=== PATIENT | female | born 1985 | race Caucasian/White ===

== ENCOUNTER 2017-10-19 07:42 | Inpatient (IN) | payer BC, OTHER ==
[~2017-10-19] VITALS: Ht 162.6 cm; Wt 54.4 kg
--- NOTE | 2017-10-19 14:06 | NUR ---
PRE ADMISSION 32 year old female presented at intake, patient is alert and oriented x4, bp: 124/72 hr: 91 t: 98.2 r: 16 o2 sat: 99% room air. patient reports no known drug allergies. Patient reports substance use history of: heroin 1 gram IV daily for one year, last used 10/19/2017 0400 0.2gram. cocaine, weekly use of 0.1 gram Iv, last used 10/17/2017, and methamphetamine once a month use, smoked last used 1 month ago. patient reports Dx: depression and anxiety diagnosed November 2016 and heart mummer Dx: age 25 and left atrial enlargement Dx: August 2017. patient denies any history of seizures. patient reports father and brother have history of substance abuse. patient reports this is her first time in treatment. patient was educated regarding unit policies and procedures with good verbal understanding. patient was seen by Dr. Harley at intake office.
[2017-10-19] MEDS ORDERED: ONDANSETRON ODT 4 MG TAB.RAPDIS SL PRN (14:30)
[2017-10-19] MEDS ORDERED: MAG HYDROX/AL HYDROX/SIMETH 30 ML LIQUID UDC PO PRN (14:30)
[2017-10-19] MEDS ORDERED: DICYCLOMINE HCL 20 MG TABLET PO PRN (14:30)
[2017-10-19] MEDS ORDERED: LORAZEPAM 1 MG TABLET PO PRN ×2 (14:30)
[2017-10-19] MEDS ORDERED: CLONIDINE HCL 0.1 MG TABLET PO PRN (14:30)
[2017-10-19] MEDS ORDERED: ACETAMINOPHEN 325 MG TABLET PO PRN (14:30)
[2017-10-19] MEDS ORDERED: IBUPROFEN 600 MG TABLET PO PRN (14:30)
[2017-10-19] MEDS ORDERED: METHOCARBAMOL 750 MG TABLET PO PRN (14:30)
[2017-10-19] MEDS ORDERED: diphenhydrAMINE 50 MG CAPSULE PO PRN (14:30)
[2017-10-19] MEDS ORDERED: LOPERAMIDE HCL 2 MG CAPSULE PO PRN ×2 (14:30)
[2017-10-19] MEDS ORDERED: LORAZEPAM 2 MG/1 ML VIAL IM PRN (14:30)
[2017-10-19] MEDS ORDERED: ONDANSETRON 4 MG/2 ML VIAL IM PRN (14:30)
[2017-10-19] MEDS ORDERED: BUPRENORPHINE HCL 2 MG TAB.SUBL SL PRN (14:30)
--- NOTE | 2017-10-19 14:41 | NUR ---
ADMISSION Patient arrived on unit at 1441, body search completed by female SEAT SCOOPER MACHINE, no contraband was found, body assessment completed patient skin is intact but was noted with track garzon to bilateral arms, on right and left forearm area was noted with possible abscess, area was noted with bump and hard to touch. patient is 5 feet 4 inches and weighs 120 lbs. patient was oriented to unit and to room, education regarding call light use was provided with good verbal understanding, bed in low position with side rails x2 up, call light in reach. fall precautions observed. patient reports NKA. Patient reports substance use of: 1. heroin, began using heroin at the age of 30 per patient currently using heroin 1 gram IV daily for one year last used 10/19/2017 0.2gram at 0400. 2. cocaine, began using cocaine at the age of 16, currently using cocaine 0.1gram IV once a week for one year. 3. methamphetamine, began using methamphetamine at the age of 16, currently using methamphetamine unknown amount smoked once a month for two years. Patient reports heroin use began after taking more than prescribed Roxicodone, patient reports she was prescribed Roxicodone for pain mgmt in 2005 due right ankle surgery, secondary to injury of right ankle. reports she does not have a primary care physician but was diagnosed with anxiety and depression in November 2016, reports was diagnosed with heart murmur at the age of 25 and diagnosed with left atrial enlargement in August 2017 after accidently overdose on heroin. patient denies taking any home medications. patient denies any history of seizures. reports this is the first time in treatment. reports father and brothers have a history of substance abuse. patient reports surgical history of: ankle surgery in 2005 and two c sections. currently patient awake, alert and oriented, presents with: elevated heart rate, c/o chills, feeling hot and cold, enlarged pupils, bone and joint aches and anxiety, patient with admitting cow score of: 5. patients abdomen is soft and non distended, bowel sounds heard in all quadrants. patients reports are even and unlabored, lungs clear upon auscultation. will continue to monitor closely. safety measures in place. call light with in reach, will continue to monitor.
[2017-10-19 14:58] LABS: *URINE HCG, QUAL NEGATIVE (NEGATIVE)
[2017-10-19 15:07] LABS: *AMPHETAMINE, URINE NEGATIVE (NEGATIVE); *BARBITURATE, URINE NEGATIVE (NEGATIVE); *CANNABINOID, URINE NEGATIVE (NEGATIVE); *COCCAINE, URINE POSITIVE (NEGATIVE); *OPIATE, URINE POSITIVE (NEGATIVE); *PHENCYCLIDINE SCREEN,URINE NEGATIVE (NEGATIVE)
[2017-10-19 15:18] VITALS: BP 124/72
[2017-10-19 16:39] VITALS: BP 131/82
[2017-10-19 16:42] LABS: BASOPHILS # (AUTO) 0.1 K/uL (0.0-8.0); BASOPHILS % (AUTO) 1.3 % (0.0-2.0); EOSINOPHILS # (AUTO) 0.4 K/uL (0.0-0.7); EOSINOPHILS % (AUTO) 6.4 % (0.0-7.0); HEMATOCRIT 39.5 % (31.2-41.9); HEMOGLOBIN 13.1 g/dL (10.9-14.3); LYMPHOCYTES % (AUTO) 30.5 % (20.5-51.5); MEAN CORPUSCULAR HEMOGLOBIN 30.1 uug (24.7-32.8); MEAN CORPUSCULAR HGB CONC 33 g/dL (32.3-35.6); MEAN CORPUSCULAR VOLUME 90.4 fL (75.5-95.3); MONOCYTES # (AUTO) 0.5 K/uL (2.0-10.0); MONOCYTES % (AUTO) 8.4 % (0.0-11.0); NEUTROPHILS # (AUTO) 3.4 K/uL (1.8-8.9); NEUTROPHILS % (AUTO) 53.4 % (38.5-71.5); PLATELET COUNT (AUTO) 287 K/uL (179-408); RED BLOOD CELL COUNT(AUTO) 4.36 MIL/uL (3.63-4.92); WHITE BLOOD COUNT (AUTO) 6.4 K/uL (3.8-11.8)
[2017-10-19] MEDS: BUPRENORPHINE HCL 2 MG TAB.SUBL SL SCH ×2 (16:52→20:55)
[2017-10-19 17:01] LABS: ALANINE AMINOTRANSFERASE 386 U/L (14-59); ALKALINE PHOSPHATASE 125 U/L (50-136); ASPARTATE AMINOTRANSFERASE 152 U/L (15-37); BILIRUBIN,TOTAL 0.7 mg/dL (0.2-1.0); CARBON DIOXIDE 30 mmol/L (21-32); CHLORIDE 102 mmol/L (98-107); GLUCOSE 93 mg/dL (74-106); MAGNESIUM 1.9 mg/dL (1.8-2.4); POTASSIUM 4.4 mmol/L (3.5-5.1); TOTAL PROTEIN, SERUM 7.7 g/dL (6.4-8.2); UREA NITROGEN, BLOOD 11 mg/dL (7-18)
[2017-10-19 17:04] LABS: ETHANOL < 3 MG/DL (0-0)
--- NOTE | 2017-10-19 19:09 | NUR ---
END OF SHIFT Patient alert and oriented x4, patient admitted today during shift, with admitting Dx: opiate withdrawal, patient is scheduled to begin a 5 day Subutex taper tomorrow morning, but has doses scheduled for today for s/sx of withdrawal. Presented with elevated heart rate, flushed faces, clammy skin, restlessness, enlarged pupils, bone and joint aches, moist eyes, stomach cramps, yawning, and anxiety. Last cow score of: 10. Encouraged increase in PO fluid intake as tolerated, to facilitate detox. patient was encouraged adequate PO fluid intake as tolerated, patient encouraged to develop coping skills and utilization of non pharmacological interventions. Patient was encouraged to participate in therapy session .Encouraged diversional activities to alleviate anxiety. Denies any SI/HI. Safety measures in place. Call light kept with in reach, patient endorsed to oxygen system tester nurse, all pertinent information was discussed.
--- NOTE | 2017-10-19 19:10 | NUR ---
Start of Shift Patient Received. Patient is noted in activities room participating in a group meeting. Patient is a 32 year old female admitted to unit during morning shift. Patient was started on a modified Ativan and Subutex taper. Last noted COWS 11 due to increased anxiety, agitation, increased body aches, and stomach cramps. No PRN medications administered. All needs attended to promptly. Will continue plan of care as ordered.
[2017-10-19 20:52] VITALS: BP 121/70
[2017-10-19] MEDS: GABAPENTIN 300 MG CAPSULE PO SCH (20:55)
[2017-10-19] MEDS ORDERED: LORAZEPAM 1 MG TABLET PO SCH (21:00)
[2017-10-20 00:38] VITALS: BP 116/77
[2017-10-20 04:15] VITALS: BP 104/68
--- NOTE | 2017-10-20 07:26 | NUR ---
End of Shift Patient is in bed sleeping. Breathing even and non labored. patient continues on a modified Subutex taper. Patient was noted to be easily irritable, noted verbalizing increased anxiety, increased body aches and diaphoresis. Patient also verbalized "when I detox I have issues sleeping. I dont want to take Benadryl because it doesn't work." explained to patient that MD would be made aware. Last noted COWS 12. Patient noted to sleep a total of 5 hours. All needs attended to promptly. Will endorse to continue plan of care as ordered.
--- NOTE | 2017-10-20 07:41 | NUR ---
BEGINNING OF SHIFT Patient endorsement report received from shank rander nurse, all pertinent information discussed. Patient is a 32 year old female with admitting Dx: Opiate withdrawal. Patient continues under very close observation, patient scheduled to begin a 5 day Subutex taper as ordered, is currently scheduled to begin day 1 of taper this morning. Per shank rander patient with last cow score of: 12. Received no PRNs. per shank rander. slept for 5 hours. Fall and seizure precautions observed at all times. Patient received awake, alert and oriented x4, educated regarding plan of care for the day, and medication regimen with good verbal understanding. fall and seizure precautions observed and in place. will continue to monitor closely. safety measures in place.
[2017-10-20] MEDS ORDERED: HYDROXYZINE PAMOATE 25 MG CAPSULE PO PRN (09:00)
[2017-10-20] MEDS ORDERED: TUBERCULIN,PURIF.PROT.DERIV. 5 TU/0.1 ML TEST ID ONE (09:00)
[2017-10-20 09:24] VITALS: BP 97/67
[2017-10-20] MEDS: GABAPENTIN 300 MG CAPSULE PO SCH ×2 (09:27→20:59)
[2017-10-20] MEDS: BUPRENORPHINE HCL 2 MG TAB.SUBL SL SCH ×3 (09:27→21:00)
--- NOTE | 2017-10-20 11:05 | NUR ---
MD COMMUNICATION patient verbalized to charge nurse feeling "my blood sugar is low" patient reported feeling "weak, and shaky" patient reports that sometimes she does have "hypoglycemia" per MD patient with new orders for one time blood glucose check.
--- NOTE | 2017-10-20 11:10 | NUR ---
BLOOD SUGAR Patient with blood glucose of 99, per patient was drinking an apple juice and feels better. MD notified. will continue to monitor closely. safety measures in place. call light with in reach. will continue to monitor.
[2017-10-20] MEDS ORDERED: BLOOD SUGAR DIAGNOSTIC 1 EACH STRIP VI ONE (11:30)
--- NOTE | 2017-10-20 13:24 | NUR ---
Therapist prompted client to attend all groups while in treatment to increase feelings of being connected to others and not be isolated in bedroom. Therapist explained the benefits of attending groups such as learning new coping tools, learning about feelings/emotions and being able to learn to decrease negative feelings and thoughts.
[2017-10-20 14:15] VITALS: BP 114/62
[2017-10-20 17:00] VITALS: BP 131/82
--- NOTE | 2017-10-20 19:00 | NUR ---
END OF SHIFT Patient alert and oriented x4, Dx: opiate withdrawal, patient is continues on day 1 of 5 day Subutex taper as ordered. patient reported poor sleep during car shifter, encouraged patient to avoid day naps and to avoid caffeine products prior to sleeping. Dr. Hannah was also notified with new orders. During shift patient presented with: flushed face, clammy skin, restlessness, enlarged pupils, bone and joint aches, moist eyes, yawning and anxiety. Initial cow score of: 10, last cow score of: 9. During shift patient with episodes of reporting she had "hypoglycemia" blood sugar was checked as ordered by Dr. reynoso with result of 99. monitored closely for any s/sx of hypoglycemia during shift. Encouraged increase in PO fluid intake as tolerated, to facilitate detox. patient was encouraged adequate PO fluid intake as tolerated, patient encouraged to develop coping skills and utilization of non pharmacological interventions. Patient was encouraged to participate in therapy session .Encouraged diversional activities to alleviate anxiety. Denies any SI/HI. Safety measures in place. Call light kept with in reach, patient endorsed to car shifter nurse, all pertinent information was discussed.
--- NOTE | 2017-10-20 19:15 | NUR ---
Start of Shift Note: Received patient from day shift nurse. Patient is a 32 y.o female admitted on 10/19/17 for medically supervised withdrawal from Opiate and Benzo's. Upon assessment, pt oberved sitting in bed with a flat affect, anxious/irritable mood, noted with moist/clammy skin & reports constipation. Encourage pt to increase fluid intake. Pt continues on a Subutex taper and started pt today on a modified Ativan taper and tolerating well. Last COWS 9 CIWA 7. No PRN medications received during day shift per report. Educated patient current plan of care for the night and medication regimen. Safety measures in place. Will continue to monitor patient. Addendum: 10/21/17 at 2230 by KELLY MARIE RN ERROR: WRONG TIME DOCUMENTED
--- NOTE | 2017-10-20 19:30 | NUR ---
Start of Shift Pt is a 32 y/o female, admitted 10/19/17 for Heroin, Xanax Withdrawal and detox, and using Cocaine, Methamphetamine on an intermittent basis. Pt called to room and noted to be withdrawn, anxious. and irritable, sitting on bed (hair pulled up). Flat and withdrawn, inquiring about Wellbutrin start, saying she normally takes 300mg ,scheduled dose is 150 mg qday starting the following morning. Nurse to inquire as to dose. 2100 meds to include Neurontin 300mg PO, Seroquel 50mg PO, and Subutex 4mg SL
[2017-10-20 20:00] VITALS: BP 138/79
[2017-10-20] MEDS: QUETIAPINE FUMARATE 25 MG TABLET PO SCH (20:59)
[2017-10-21 00:38] VITALS: BP 105/55
[2017-10-21 04:15] VITALS: BP 107/63
--- NOTE | 2017-10-21 07:27 | NUR ---
End of Shift Pt is a 32 y/o female that continues on a modified Subutex Taper. During shift Pt was noted to be withdrawn, anxious. and irritable, flat. Pt received first dose Seroquel 50mg PO for sleep and medication noted to be effective-pt slept 8hours. No PRN medications administered, last CIWA noted to be 10. All needs attended to promptly. Will endorse to continue plan of care as ordered.
--- NOTE | 2017-10-21 07:41 | NUR ---
BEGINNING OF SHIFT Patient endorsement report received from textile worker nurse, all pertinent information discussed. Patient is a 32 year old female with admitting Dx: Opiate withdrawal. Patient continues under very close observation, patient scheduled to begin a 5 day Subutex taper as ordered, is currently scheduled to begin day 2 of taper this morning. Per textile worker patient with last cow score of: 10. Received no PRNs. per textile worker. slept for 8 hours. Fall and seizure precautions observed at all times. Patient received awake, alert and oriented x4, educated regarding plan of care for the day, and medication regimen with good verbal understanding. fall and seizure precautions observed and in place. will continue to monitor closely. safety measures in place.
[2017-10-21 08:06] LABS: HEPATITIS B SURFACE AG Negative (Negative)
[2017-10-21 08:49] VITALS: BP 95/62
[2017-10-21] MEDS: GABAPENTIN 300 MG CAPSULE PO SCH ×2 (08:50→14:29)
[2017-10-21] MEDS ORDERED: BUPRENORPHINE HCL 2 MG TAB.SUBL SL SCH (09:00)
[2017-10-21] MEDS: buPROPion XL 150 MG TAB.SR.24H PO SCH (09:29)
--- NOTE | 2017-10-21 11:00 | NUR ---
MD COMMUNICATION notified MD of hep c results, per MD he will speak with patient.
[2017-10-21 13:20] VITALS: BP 106/60
[2017-10-21] MEDS ORDERED: KETOROLAC TROMETHAMINE 30 MG INJ IM PRN (13:45)
[2017-10-21] MEDS ORDERED: METHYL SALICYLATE/MENTHOL CREAM 28 GM TUBE TOP PRN (13:45)
[2017-10-21] MEDS: BUPRENORPHINE HCL 2 MG TAB.SUBL SL SCH ×2 (14:29→20:57)
--- NOTE | 2017-10-21 14:38 | NUR ---
PT COMMUNICATION/USAGE HX REASSESSMENT Reassess patient regarding usage. Per patient, verbalized to nurse that she was also taking Xanax at home, per patient was first prescribed Xanax at the age of 25, for the past 4 years she has been taking PO 30mg on a weekly non daily basis, patient reports she last took Xanax 4mg PO on october 13 2017. Addendum: 10/21/17 at 1441 by SURINDER HOLLAND LVN MD Is aware, patient to start a modified ativan taper. will continue to monitor closely.
[2017-10-21] MEDS ORDERED: LORAZEPAM 1 MG TABLET PO SCH ×2 (15:00→21:00)
[2017-10-21 17:16] VITALS: BP 128/77
--- NOTE | 2017-10-21 18:59 | NUR ---
END OF SHIFT Patient alert and oriented x4, Dx: opiate withdrawal, patient is continues on day 2 of 5 day Subutex taper as ordered. Patient presented anxious, worried, with irritable facial expression. Mood is flat and labile. Patient also reported substance use of Xanax, patient was started on a modified Ativan taper as per Dr. Harley. During shift patient presented with: flushed face, clammy skin, restlessness, bone and joint aches, moist eyes, yawning and anxiety, and agitation. Initial cow score of: 10. , last cow score of: 9, last ciwa score of: 7. Encouraged increase in PO fluid intake as tolerated, to facilitate detox. patient was encouraged adequate PO fluid intake as tolerated, patient encouraged to develop coping skills and utilization of non pharmacological interventions. Patient was encouraged to participate in therapy session .Encouraged diversional activities to alleviate anxiety. Denies any SI/HI. Safety measures in place. Call light kept with in reach, patient endorsed to caustic cresylate shift superintendent nurse, all pertinent information was discussed.
--- NOTE | 2017-10-21 19:15 | NUR ---
Start of Shift Note: Received patient from day shift nurse. Patient is a 32 y.o female admitted on 10/19/17 for medically supervised withdrawal from Opiate and Benzo's. Upon assessment, pt oberved sitting in bed with a flat affect, anxious/irritable mood, noted with moist/clammy skin & reports constipation. Encourage pt to increase fluid intake. Pt continues on a Subutex taper and started pt today on a modified Ativan taper and tolerating well. Last COWS 9 CIWA 7. No PRN medications received during day shift per report. Educated patient current plan of care for the night and medication regimen. Safety measures in place. Will continue to monitor patient.
[2017-10-21 20:00] VITALS: BP 121/74
[2017-10-21] MEDS: MIRALAX 17 GM POWD.PACK PO PRN (20:57)
[2017-10-21] MEDS: QUETIAPINE FUMARATE 25 MG TABLET PO SCH (20:57)
--- NOTE | 2017-10-21 20:57 | NUR ---
PRN Miralax PRN Miralax administered as ordered for constipation. Will continue to monitor patient for any bowel movement.
[2017-10-21] MEDS ORDERED: GABAPENTIN 300 MG CAPSULE PO SCH (21:00)
[2017-10-22] VITALS: BP 119/64
--- NOTE | 2017-10-22 06:55 | NUR ---
End of Shift Note: Patient is a 32 y.o female admitted for medically supervised withdrawal Opiate and Benzo withdrawal. Patient remains alert & oriented x4. Patient continues on her Ativan & Subutex taper and tolerating well. Last COWS 8 CIWA 8. Pt received PRN Miralax for constipation, still no BM noted. Pt remained stable and vitals note WNL. Will continue to monitor s/s of withdrawal. Pt still asleep at this time. Pt slept for a total of 8 hours. Fluid intake: 1535 ml. Voided 4x with no bowel movement during my shift. All needs attended. Safety measures in place. Will endorse to day shift nurse.
--- NOTE | 2017-10-22 07:28 | NUR ---
Start of shift note; Received report from night nurse. Patient is a 32 year old female admitted on 10/19/17 for Opiate/ Benzodiazepine/ Methamphetamine withdrawals. Patient was started on Subutex and Ativan taper. Patient is AOx4, complaining of muscle aches, anxiety, diaphoresis, avoidant to eye contact, withdrawn, appears depressed. Encouraged patient to participate in group therapies and activities and to verbalize feelings. Educated patient regarding the importance of compliance to treatment and medication regime, patient verbalized understanding. All safety measures secured. Will continue to monitor patient.
[2017-10-22 08:00] VITALS: BP 111/62
[2017-10-22] MEDS: GABAPENTIN 300 MG CAPSULE PO SCH ×3 (08:15→21:07)
[2017-10-22] MEDS: BUPRENORPHINE HCL 2 MG TAB.SUBL SL SCH ×3 (08:15→21:09)
[2017-10-22] MEDS: buPROPion XL 150 MG TAB.SR.24H PO SCH (08:15)
[2017-10-22] MEDS ORDERED: LORAZEPAM 1 MG TABLET PO SCH ×3 (09:00→21:00)
[2017-10-22] MEDS ORDERED: PSYLLIUM SEED PACKET PO PRN (11:30)
[2017-10-22] MEDS ORDERED: HYDROXYZINE PAMOATE 25 MG CAPSULE PO PRN (11:30)
[2017-10-22 12:00] VITALS: BP 132/81
[2017-10-22] MEDS: DOCUSATE SODIUM 250 MG CAPSULE PO SCH (13:22)
[2017-10-22] MEDS: LIDOCAINE 5% PATCH TD SCH (13:22)
[2017-10-22] MEDS: DICYCLOMINE HCL 20 MG TABLET PO SCH ×2 (14:19→21:08)
--- NOTE | 2017-10-22 14:35 | NUR ---
MD order; Patient is complaining of constipation, offered patient PRN laxatives but patient refused to take laxatives other than Citrate of magnesium. MD was notified, MD ordered Citrate of magnesium one time order for constipation. MD does not have access to [facility] at this time, order was clarified and entered on [facility].
[2017-10-22] MEDS ORDERED: MAGNESIUM CITRATE 296 ML BOTTLE PO ONE (14:45)
[2017-10-22 16:00] VITALS: BP 136/78
--- NOTE | 2017-10-22 19:04 | NUR ---
End of shift; Patient is AOX4 appears to be agitated complaining of muscle aches, stomach cramps and restless legs. Patient remained compliant with treatment plan and medication regime. Patient participated in group activities and therapies. Medications were effective in reducing withdrawal symptoms. All safety measures secured. Endorsed to night nurse.
[2017-10-22 20:00] VITALS: BP 129/78
--- NOTE | 2017-10-22 20:00 | NUR ---
START OF SHIFT NOTE RECEIVED REPORT FROM DAY SHIFT NURSE. PATIENT IS 32 YEAR OLD FEMALE ADMITTED FOR OPIATE WITHDRAWAL. CONTINUE PATIENT ON SUBUTEX AND ATIVAN TAPER, TOLERATED WELL AND NO ADVERSE REACTION. PATIENT RECEIVED ONE TIME MAGNESIUM CITRATE. LAST COWS 9 AND CIWA 8. RECEIVED PATIENT ALERT ORIENTED X 4. RESPIRATION EVEN AND UNLABORED. PATIENT WITH FLAT AFFECT, SAD , ANXIOUS, IRRITABLE,PRESSURED SPEECH, ABDOMINAL CRAMPING AND C/O BACK PAIN. SAFETY MEASURES IN PLACE. CALL LIGHT IN REACH. WILL CONTINUE TO MONITOR
[2017-10-22] MEDS: QUETIAPINE FUMARATE 25 MG TABLET PO SCH (21:07)
--- NOTE | 2017-10-22 21:07 | NUR ---
PRN ROBAXIN ADMINISTRATION PATIENT C/O BACK PAIN 12/14. WILL MONITOR FOR EFFECTIVENESS
--- NOTE | 2017-10-22 22:07 | NUR ---
PRN ROBAXIN RE-ASSESSMENT PATIENT STATES ROBAXIN IS HELPFUL AND EFFECTIVE. NO PAIN AT THIS TIME.
[2017-10-23] VITALS: BP 124/78
--- NOTE | 2017-10-23 04:00 | NUR ---
COWS AND CIWA DEFERRED PATIENT IN BED WITH EYES CLOSED. RESPIRATION EVEN AND UNLABORED. SAFETY MEASURES IN PLACE. CALL LIGHT IN REACH. WILL CONTINUE TO MONITOR
--- NOTE | 2017-10-23 07:09 | NUR ---
END OF SHIFT NOTE PATIENT SLEPT 5 HOURS. FLUID INTAKE 1,535 ML. VOIDED X 4. BM X 1. CONTINUE PATIENT ON SUBUTEX AND ATIVAN TAPER, TOLERATED WELL AND NO ADVERSE REACTION. PATIENT WAS ANXIOUS, IRRITABLE, C/O ABDOMINAL CRAMPING AND BACK PAIN BEGINNING OF SHIFT. PATIENT HAD DIFFICULTY FALLING ASLEEP. PATIENT RECEIVED SCHEDULED SEROQUEL , OFFERED BENADRYL BUT REFUSED. PATIENT WAS GIVEN PRN ROBAXIN AT 2107 FOR BACK PAIN, EFFECTIVE. PATIENT WAS GIVEN PRN MAGNESIUM CITRATE PREVIOUS SHIFT. PATIENT HAD LARGE BM DURING SHIFT. CONTINUE TO ENCOURAGE FLUIDS. PATIENT COMPLIANT WITH MEDICATION AND TREATMENT PLAN. SAFETY MEASURES IN PLACE. CALL LIGHT IN REACH. WILL CONTINUE TO MONITOR . LAST COWS 4 AND CIWA 2 .
[2017-10-23 08:00] VITALS: BP 100/60
--- NOTE | 2017-10-23 08:15 | NUR ---
START OF SHIFT: RECEIVED PT A/O X 4. SHE IS SITTING UP IN BED EATING BREAKFAST. SHE REPORTS ANXIETY,ABDOMINAL CRAMPS,RESTLESSNESS AND IRRITABILITY. CIWA 7 COWS 7. ATIVAN /SUBUTEX TAPER IN PROGRESS TO MANAGE S/S OF W/D. SHE STATES HER APPETITE IS FAIR. ENCOURAGED GROUP ATTENDANCE TO IMPROVE COPING SKILLS AND PREVENT RELAPSE. WILL CONTINUE TO MONITOR AND OFFER SUPPORT.
[2017-10-23] MEDS: DICYCLOMINE HCL 20 MG TABLET PO SCH ×3 (08:48→20:54)
[2017-10-23] MEDS: GABAPENTIN 300 MG CAPSULE PO SCH ×3 (08:48→20:55)
[2017-10-23] MEDS: LORAZEPAM 1 MG TABLET PO SCH ×2 (08:48→20:55)
[2017-10-23] MEDS: DOCUSATE SODIUM 250 MG CAPSULE PO SCH (08:48)
[2017-10-23] MEDS: BUPRENORPHINE HCL 2 MG TAB.SUBL SL SCH ×2 (08:48→20:56)
[2017-10-23] MEDS: buPROPion XL 150 MG TAB.SR.24H PO SCH (08:48)
[2017-10-23] MEDS: LIDOCAINE 5% PATCH TD SCH (08:49)
[2017-10-23 12:00] VITALS: BP 128/70
[2017-10-23] MEDS ORDERED: LIDO30AD10 TD (13:38)
[2017-10-23] MEDS ORDERED: DICY20TA28 PO (13:38)
[2017-10-23] MEDS ORDERED: GABA-534 PO (13:38)
[2017-10-23] MEDS ORDERED: BUPR-96 PO (13:38)
[2017-10-23] MEDS ORDERED: CLON0.1T14 PO (13:38)
[2017-10-23] MEDS ORDERED: DIPH50CA37 PO (13:38)
[2017-10-23] MEDS ORDERED: IBUP-1955 PO (13:38)
[2017-10-23] MEDS ORDERED: HYDR-3895 PO (13:38)
[2017-10-23] MEDS ORDERED: QUET25TA PO (13:38)
[2017-10-23] MEDS ORDERED: METH-406 PO (13:38)
[2017-10-23 16:00] VITALS: BP 124/75
--- NOTE | 2017-10-23 16:40 | NUR ---
LATE ADMINISTRATION PT WAS IN GROUP . APPROVED.
--- NOTE | 2017-10-23 18:56 | NUR ---
END OF SHIFT: PT CONTINUES ON ATIVAN/ SUBUTEX TAPER TO MANAGE S/S OF W/D. LAST COWS 6 CIWA 5. SHE PRESENTS WITH IRRITABLE MOOD AND REPORTS ANXIETY,RESTLESSNESS AND IRRITABILITY. SHE STATES THE DETOX MEDS ARE EFFECTIVE IN REDUCING S/S OF W/D. SHE ATTENDED GROUPS AND INTERACTS WITH PEERS. WILL PASS SHIFT REPORT TO ONCOMING NIGHT NURSE.
--- NOTE | 2017-10-23 19:30 | NUR ---
START OF SHIFT Received 32 year old female patient admitted on 10/19/17 for Opiate, Benzodiazepine, Cocaine and methamphetamine withdrawal. She is receiving a 5 day Subutex and 4 day modified Ativan taper and is tolerating well. Per endorsement, pt did not receive or request PRN medications. She is noted to be anxious, restless, irritable, agitated, and withdrawn with flat affect. She complains of body aches, chills, abdominal cramps, watery eyes, and sweats. Last COWS 6, CIWA: 5 at 1600. Breathing is even and unlabored, safety measures in place. Will continue to monitor.
[2017-10-23 20:00] VITALS: BP 133/82
[2017-10-23] MEDS: QUETIAPINE FUMARATE 25 MG TABLET PO SCH (20:54)
[2017-10-23] MEDS: MIRALAX 17 GM POWD.PACK PO PRN (22:43)
--- NOTE | 2017-10-23 22:43 | NUR ---
PRN MIRALAX Pt complains of constipation. PRN Miralax administered as ordered. Will continue to monitor.
--- NOTE | 2017-10-23 23:43 | NUR ---
PRN MIRALAX REASSESSMENT No BM noted. Will continue to monitor.
[2017-10-24] VITALS: BP 114/72
--- NOTE | 2017-10-24 04:00 | NUR ---
VITALS REFUSED, COWS/CIWA DEFERRED 0400 vitals refused. COWS and CIWA deferred d/t pt lying in bed with eyes closed noted to be asleep. Breathing is even and unlabored. Safety measures in place. Will continue to monitor.
--- NOTE | 2017-10-24 07:07 | NUR ---
END OF SHIFT Pt is a 32 year old female patient admitted on 10/19/17 for Opiate, Benzodiazepine, Cocaine and methamphetamine withdrawal. Pt remains alert and oriented x4. She continues on a 5 day Subutex and 4 day modified Ativan taper. Currently on day 5/5 of Subutex and 4/4 of Ativan taper and is tolerating well. She was noted to be anxious, restless, irritable, agitated, and withdrawn. And had complaints of body aches, chills,abdominal cramps, watery eyes, and sweats during the shift. She received PRN Miralax at 2243 for constipation. No BM noted. Will endorse to AM shift to monitor. She slept a total of 6 hrs, Intake: 1020mL, Void: x2, BM:0. COWS7, CIWA:5 at 0000. Breathing is even and unlabored, safety measures in place. Endorsed to AM shift.
[2017-10-24 08:00] VITALS: BP 95/68
--- NOTE | 2017-10-24 08:13 | NUR ---
Start of shift note; Received report from night nurse. Patient is a 32 year old female admitted on 10/19/17 for Opiate/ Benzodiazepine/ Methamphetamine withdrawals. Patient was started on Subutex and Ativan taper, today is patient's last day of taper dose. Patient is AOx4, complaining of muscle aches, anxiety, diaphoresis, avoidant to eye contact, withdrawn. Encouraged patient to participate in group therapies and activities and to verbalize feelings. Educated patient regarding the importance of compliance to treatment and medication regime, patient verbalized understanding. All safety measures secured. Will continue to monitor patient.
[2017-10-24] MEDS: DOCUSATE SODIUM 250 MG CAPSULE PO SCH (08:28)
[2017-10-24] MEDS: LIDOCAINE 5% PATCH TD SCH (08:28)
[2017-10-24] MEDS: DICYCLOMINE HCL 20 MG TABLET PO SCH ×3 (08:29→21:05)
[2017-10-24] MEDS: buPROPion XL 150 MG TAB.SR.24H PO SCH (08:29)
[2017-10-24] MEDS: GABAPENTIN 300 MG CAPSULE PO SCH ×3 (08:29→21:04)
[2017-10-24] MEDS ORDERED: BUPRENORPHINE HCL 2 MG TAB.SUBL SL SCH (09:00)
[2017-10-24] MEDS ORDERED: LORAZEPAM 1 MG TABLET PO SCH (09:00)
[2017-10-24 12:00] VITALS: BP 120/76
[2017-10-24 16:00] VITALS: BP 101/66
--- NOTE | 2017-10-24 18:21 | NUR ---
End of shift note; Patient is AOx4 complaining of muscle aches, stomach cramps and anxiety. Patient remained compliant with treatment plan and medication regime. Medications were effective in reducing withdrawal symptoms. Patient participated in group activities and therapies. Patient is medically cleared for discharge tomorrow. All safety measures secured. Met all needs.
--- NOTE | 2017-10-24 19:30 | NUR ---
START OF SHIFT Received 32 year old female patient admitted on 10/19/17 for Opiate, Benzodiazepine, Cocaine and Methamphetamine withdrawal. Pt is alert and oriented x4. She completed her 5 day Subutex and 4 day modified Ativan taper and is scheduled to be DC tomorrow to [facility]. Per endorsement she did not receive or request PRN medications. Pt is noted to be withdrawn, anxious, irritable, restless, and agitated with flat affect. She complains of chills, sweats, mouth sore and constipation. Breathing is even and unlabored, safety measures in place. Will continue to monitor.
[2017-10-24 20:00] VITALS: BP 122/63
[2017-10-24] MEDS ORDERED: LIDOCAINE VISCUS 2% 15 ML UDC MM ONE (21:00)
[2017-10-24] MEDS: QUETIAPINE FUMARATE 25 MG TABLET PO SCH (21:04)
--- NOTE | 2017-10-24 21:05 | NUR ---
ONE TIME XYLOCAINE Pt complains of mouth sore and reports difficulty eating. MD made aware. One time Xylocaine administered as ordered. Pt reported relief after swishing. Will continue to monitor.
[2017-10-25] VITALS: BP 115/68
--- NOTE | 2017-10-25 04:09 | NUR ---
VITALS REFUSED. COWS/CIWA DEFERRED 0400 vitals refused by pt. COWS and CIWA deferred d/t pt lying in bed with eyes closed noted to be asleep. Breathing is even and unlabored. Safety measures in place. Will monitor.
--- NOTE | 2017-10-25 06:56 | NUR ---
END OF SHIFT Pt is a 32 year old female patient admitted on 10/19/17 for Opiate, Benzodiazepine, Cocaine and Methamphetamine withdrawal. She remains alert and oriented x4. She is scheduled to be DC today to [facility]. She was noted to be anxious, irritable, agitated, and restless. He complained of constipation, mouth sore, chills and sweats during the shift. She received one time order of Xylocaine at 2105. Pt reported medication was effective. She slept a total of 6 hrs, Intake: 800mL,Void: x2, BM:0, CIWA:5, COWS: 7 at 1999. Breathing is even and unlabored, safety measures in place. Endorsed to AM shift.
--- NOTE | 2017-10-25 07:15 | NUR ---
START OF SHIFT: PATIENT IS A 32 YR OLD FEMALE ADMITTED TO [facility] ON 10/19/17 FOR WITHDRAWAL FROM OPIATES AND BENZODIAZEPINES, PATIENT HAS COMPLETED HER ATIVAN AND SUBUTEX TAPERS AND WILL BE DISCHARGED THIS AM TO [facility]. PATIENT REQUIRED LIDOCAINE SWISH AND SPIT ORAL MOUTHWASH ON PM SHIFT FOR ORAL DISCOMFORT. LAST COWS 7 AND CIWA 5 @ 1999. PATIENT SLEPT FOR 6 HOURS. PATIENT IS ASLEEP IN BED AT THIS TIME, BREATHING EVEN AND UNLABORED, SIDE RAILS UP X 2. WILL CONTINUE TO FOLLOW MD PLAN OF CARE.
[2017-10-25 08:00] VITALS: BP 100/52
[2017-10-25] MEDS: DICYCLOMINE HCL 20 MG TABLET PO SCH (08:06)
[2017-10-25] MEDS: DOCUSATE SODIUM 250 MG CAPSULE PO SCH (08:06)
[2017-10-25] MEDS: LIDOCAINE 5% PATCH TD SCH (08:07)
[2017-10-25] MEDS: GABAPENTIN 300 MG CAPSULE PO SCH (08:07)
[2017-10-25] MEDS ORDERED: buPROPion XL 150 MG TAB.SR.24H PO SCH (09:00)
--- NOTE | 2017-10-25 10:00 | NUR ---
DISCHARGE NOTE: PATIENT WAS ADMITTED ON 10/19/17 FOR OPIATE AND BENZO WITHDRAWAL AND IS BEING DISCHARGED TODAY 10/25/17. ALL DC PAPERWORK SIGNED AND DATED BY PATIENT, ALL BELONGINGS AND PRESCRIPTIONS PLACED IN ZIPLOCKED BAG AND GIVEN TO PATIENT.VITAL SIGNS STABLE: BP 11/52 HR 76 RR 17 O2 98% T 98.2. PATIENT STATES NO SI/HI AT THIS TIME. PATIENT AMBULATED TO HOSPITAL LOBBY AND WAS PICKED UP BY "[facility]" PRIVATE CAR FOR TRANSPORT TO [facility]".
== END 2017-10-25 10:10 | disposition home or self-care (01) | DRG 895 ==
LOC: SRC 13:42
PROVIDERS: ADMIT Internal Medicine; ATTEND Internal Medicine
PROC: HZ2ZZZZ Detoxification Services for Substance Abuse Treatment (ICD-10-PCS; principal; 2017-10-19)
PROC: HZ41ZZZ Group Counseling for Substance Abuse Treatment, Behavioral (ICD-10-PCS; 2017-10-20)
DX: F11.23 Opioid dependence with withdrawal (principal); F33.1 Major depressive disorder, recurrent, moderate; I42.9 Cardiomyopathy, unspecified; Z86.74 Personal history of sudden cardiac arrest; F17.210 Nicotine dependence, cigarettes, uncomplicated; F41.1 Generalized anxiety disorder; Z81.1 Family history of alcohol abuse and dependence; Z81.8 Family history of other mental and behavioral disorders; F13.239 Sedative, hypnotic or anxiolytic dependence with withdrawal, unspecified; F14.10 Cocaine abuse, uncomplicated; B19.20 Unspecified viral hepatitis C without hepatic coma; F15.10 Other stimulant abuse, uncomplicated
CPT/HCPCS: 36415; 70030-TC; 80307; 80353; 80361; 83735; 84703; 85025; 86580; 86592; 86705; 86803; 87340; 87806; G0480